=== PATIENT | male | born 1990 | race African-American/Black ===

== ENCOUNTER → 2017-05-22 | Emergency (ER) | payer MEDICAID ==
[~2017-05-22] VITALS: Ht 177.8 cm; Wt 81.6 kg
[~2017-05-22] MED LIST: BENZTROPINE MESY1 MG PO; INVEGA1.5 MG PO; LEXAPRO20 MG ORAL
--- NOTE | 2017-05-22 21:32 | Emergency Room Report ---
History of Present Illness General Chief Complaint: Behavioral Complaint Source: Patient, EMS Present Illness HPI Patient is a 27-year-old male brought in by EMS with [employer] after increased agitation. Patient had prior history of psychosis. He had been brought in by [employer] and was currently thought to be danger to others due to psychiatric condition. Patient was to be placed on 5150 hold by [employer] per officer Allergies: Coded Allergies: RISPERIDONE (Verified Allergy, Unknown, 05/22/17) Patient History Reviewed Nursing Documentation: PMH: Agreed, PSxH: Agreed Nursing Documentation-PMH Past Medical History: No History, Except For History Of Psychiatric Problem: Yes - schizophrenia Review of Systems All Other Systems: limited - by poor cooperation Physical Exam Vital Signs Date Time Temp Pulse Resp B/P (MAP) Pulse Ox O2 Delivery O2 Flow Rate FiO2 05/22/17 21:12 98.4 110 16 160/62 96 Room Air 98.4 Sp02 EP Interpretation: reviewed, normal General Appearance: alert/responsive, no apparent distress, GCS 15, non-toxic Head: atraumatic Eyes: PERRL, lids + conjunctiva normal ENT: hearing intact, no angioedema Neck: supple/symm/no masses, no meningismus Respiratory: effort normal, no wheezing, chest symmetrical Cardiovascular: regular rate, rhythm, no edema Cardiovascular #2: 2+ carotid (R), 2+ carotid (L), 2+ dorsalis pedis (R), 2+ dorsalis pedis (L) Gastrointestinal: non-tender, no mass, non-distended, no rebound/guarding, normal bowel sounds Musculoskeletal: gait & station normal, strength & tone normal, normal ROM, non -tender Neurologic: oriented x3, sensory intact, normal speech Skin: well hydrated, other - forehead abrasion Lymphatic: normal inspection Medical Decision Making Diagnostic Impression: Primary Impression: Forehead abrasion Additional Impression: Psychosis ER Course Patient presented for psychosis. Differential diagnoses include substance abuse , psychosis, bipolar disorder, depression, malingering Because of complexity of patient's case laboratory testing and imaging studies were ordered.Patient is medicated with IM Haldol as well as Benadryl. He had some improvement in his agitation. The patient was placed in restraints briefly.The patient was subsequently removed from restraints and was noted to have increased agitation again. Patient was subsequently placed back in restraints and was medicated with Haldol Ativan and Benadryl.Patient was medically cleared for psychiatric placement.Patient was discussed with [facility] he was noted to have no coverage through [facility] for mental health Labs Test 05/22/17 23:15 05/22/17 23:25 Urine Opiates Screen Negative (NEGATIVE) Urine Barbiturates Screen Negative (NEGATIVE) Phencyclidine (PCP) Screen Negative (NEGATIVE) Urine Amphetamines Screen Negative (NEGATIVE) Urine Benzodiazepines Screen Negative (NEGATIVE) Urine Cocaine Screen Negative (NEGATIVE) Urine Marijuana (THC) Screen Negative (NEGATIVE) White Blood Count 16.4 K/UL (4.8-10.8) Red Blood Count 4.83 M/UL (4.70-6.10) Hemoglobin 14.7 G/DL (14.2-18.0) Hematocrit 41.2 % (42.0-52.0) Mean Corpuscular Volume 85 FL (80-99) Mean Corpuscular Hemoglobin 30.4 PG (27.0-31.0) Mean Corpuscular Hemoglobin Concent 35.7 G/DL (32.0-36.0) Red Cell Distribution Width 11.9 % (11.6-14.8) Platelet Count 228 K/UL (150-450) Mean Platelet Volume 8.5 FL (6.5-10.1) Neutrophils (%) (Auto) 81.9 % (45.0-75.0) Lymphocytes (%) (Auto) 10.0 % (20.0-45.0) Monocytes (%) (Auto) 6.9 % (1.0-10.0) Eosinophils (%) (Auto) 0.6 % (0.0-3.0) Basophils (%) (Auto) 0.6 % (0.0-2.0) Sodium Level 139 MMOL/L (136-145) Potassium Level 3.6 MMOL/L (3.5-5.1) Chloride Level 104 MMOL/L (98-107) Carbon Dioxide Level 25 MMOL/L (21-32) Anion Gap 10 mmol/L (5-15) Blood Urea Nitrogen 12 mg/dL (7-18) Creatinine 1.0 MG/DL (0.55-1.30) Estimat Glomerular Filtration Rate > 60 mL/min (>60) Glucose Level 128 MG/DL (74-106) Calcium Level 8.6 MG/DL (8.5-10.1) Total Bilirubin 0.3 MG/DL (0.2-1.0) Aspartate Amino Transf (AST/SGOT) 22 U/L (15-37) Alanine Aminotransferase (ALT/SGPT) 35 U/L (12-78) Alkaline Phosphatase 72 U/L (46-116) Total Protein 7.8 G/DL (6.4-8.2) Albumin 3.7 G/DL (3.4-5.0) Globulin 4.1 g/dL Albumin/Globulin Ratio 0.9 (1.0-2.7) Salicylates Level 1.8 ug/mL (2.8-20) Acetaminophen Level < 2 MCG/ML (10-30) Serum Alcohol < 3 mg/dL Last Vital Signs Date Time Temp Pulse Resp B/P (MAP) Pulse Ox O2 Delivery O2 Flow Rate FiO2 05/22/17 21:12 98.4 110 16 160/62 96 Room Air 98.4 Status: unchanged Disposition: XFER TO PSYCH HOSP/UNIT Condition: Stable SkipJeradro May 22, 2017 21:32
[2017-05-22 21:45] VITALS: BP 160/62
[2017-05-22] MEDS: Haloperidol 5mg/ml Inj IM ONE (22:51)
[2017-05-22] MEDS: DiphenhydrAMINE 50mg/ml Inj IM ONE (22:51)
[2017-05-22 23:44] LABS: BASOPHILS % (AUTO) 0.6 % (0.0-2.0); EOSINOPHILS % (AUTO) 0.6 % (0.0-3.0); HEMATOCRIT 41.2 % (42.0-52.0); HEMOGLOBIN 14.7 G/DL (14.2-18.0); MEAN CORPUSCULAR VOLUME 85 FL (80-99); MONOCYTES % (AUTO) 6.9 % (1.0-10.0); NEUTROPHILS % (AUTO) 81.9 % (45.0-75.0); PLATELET COUNT 228 K/UL (150-450); RED BLOOD COUNT 4.83 M/UL (4.70-6.10); RED CELL DISTRIBUTION WIDTH 11.9 % (11.6-14.8); WHITE BLOOD COUNT 16.4 K/UL (4.8-10.8)
[2017-05-22 23:53] LABS: ANION GAP 10 mmol/L (5-15); BLOOD UREA NITROGEN 12 mg/dL (7-18); CALCIUM 8.6 MG/DL (8.5-10.1); CARBON DIOXIDE 25 MMOL/L (21-32); CHLORIDE 104 MMOL/L (98-107); POTASSIUM 3.6 MMOL/L (3.5-5.1); SODIUM 139 MMOL/L (136-145)
[2017-05-23] VITALS (84 sets, daily range): BP systolic 104–150; BP diastolic 49–105
[2017-05-23 00:05] LABS: ALANINE AMINOTRANSFERASE 35 U/L (12-78); ALBUMIN 3.7 G/DL (3.4-5.0); ALBUMIN/GLOBULIN RATIO 0.9 (1.0-2.7); ALKALINE PHOSPHATASE 72 U/L (46-116); ASPARTATE AMINO TRANSFERASE 22 U/L (15-37); BILIRUBIN,TOTAL 0.3 MG/DL (0.2-1.0)
[2017-05-23] MEDS: DiphenhydrAMINE 50mg/ml Inj IM ONE (03:27)
[2017-05-23] MEDS: LORazepam Inj 2mg/ml 1ml IM ONE (03:27)
[2017-05-23] MEDS: Haloperidol 5mg/ml Inj IM ONE (03:28)
[2017-05-24] VITALS (15 sets, daily range): BP systolic 122–138; BP diastolic 65–94
[2017-05-24] MEDS: DiphenhydrAMINE 50mg/ml Inj IM ONE (02:57)
[2017-05-24] MEDS: Haloperidol 5mg/ml Inj IM ONE ×3 (02:57→12:53)
[2017-05-24] MEDS: LORazepam 1mg tab ORAL ONE (06:53)
[2017-05-24] MEDS: Benztropine 1mg tab ORAL ONE (06:53)
[2017-05-24] MEDS: LORazepam Inj 2mg/ml 1ml IM ONE (12:39)
== END ==
LOC: EDBD 21:17 → EMR 23:15
DX: S00.81XA Abrasion of other part of head, initial encounter (principal); X58.XXXA Exposure to other specified factors, initial encounter; Y92.9 Unspecified place or not applicable; F29 Unspecified psychosis not due to a substance or known physiological condition; F20.9 Schizophrenia, unspecified
CPT/HCPCS: 36415; 80053; 80307; 80329; 85025; 96372; 99285; J1200; J1630